=== PATIENT | female | born 1940 | race Asian ===

== ENCOUNTER 2020-03-14 07:23 | Day surgery (SDC) | payer MEDICARE, MEDICAID ==
[~2020-03-14] VITALS: Ht 142.2 cm; Wt 72.9 kg
[~2020-03-14 07:23] MED LIST: AMLO10TA PO; ASPI-611 PO; ATOR20TA PO; DILT120C62 PO; DOCU-148; FLUT9.9S BOTHNARES; HYDR-4383 PO; IBUP-1985 PO; LORA10TA65 PO; LOSA50TA3 PO; OMEP20TA5 PO; PAT0.1OS EACHEYE; PIOG15TA8 PO
[2020-03-14] MEDS ORDERED: normal saline 1000ml 1,000 ML IV PRN (08:00)
[2020-03-14 08:15] VITALS: BP 138/70
[2020-03-14] MEDS ORDERED: ROSU40TA22 PO (08:26)
[2020-03-14] MEDS ORDERED: METF-950 PO (08:26)
== END 2020-03-14 08:50 | disposition home or self-care (01) ==
LOC: SSTAY O 07:23 → EDBD 07:23 → SSTAY O 08:50
PROVIDERS: ATTEND Radiology Diagnostic Radiology
DX: R19.09 Other intra-abdominal and pelvic swelling, mass and lump (principal); Z53.8 Procedure and treatment not carried out for other reasons; Z20.828 Contact with and (suspected) exposure to other viral communicable diseases; Z88.0 Allergy status to penicillin
CPT/HCPCS: 36415; 87635